=== PATIENT | female | born 1930 | race African-American/Black ===

== ENCOUNTER 2017-01-01 11:29 | Inpatient (IN) | payer MEDICARE, OTHER ==
--- NOTE | ~2017-01-01 | EKG ---
PATIENT: FOUZIA WILSON UNIT #: [id number] Ventricular Rate: 105 BPM Atrial Rate: 105 BPM P-R Interval: 176 ms QRS Duration: 70 ms Q-T Interval: 350 ms QTC Calculation(Bezet): 462 ms P [place]: 47 degrees Calculated R [place]: -19 degrees Calculated T [place]: 45 degrees Diagnosis Line: Sinus tachycardia Diagnosis Line: Minimal voltage criteria for LVH, may be normal Diagnosis Line: variant Diagnosis Line: Early repolarization Diagnosis Line: Borderline ECG Diagnosis Line: No previous ECGs available Diagnosis Line: Confirmed by LETTY SCHWARTZ MD ([id number]) on 01/01/2017 Diagnosis Line: 10:52:38 PM INTERPRETING MD: EFREN LARKIN
--- NOTE | ~2017-01-01 | TH ---
Unit #: [id number] #: [id number] Patient: FOUZIA WILSON [id number] [address] [address] [id number] I MR#: [id number] NAME: FOUZIA WILSON. : 1930 SEX: F STUDY DATE/TIME: 01/02/2017 UNIT: C3A PCU ROOM: 314 STUDY DESCRIPTION: Imaging study Attending Physician: Opal Parry M.D. Primary Care Physician: Alexis Sofia M.D. CARDIOLOGY REPORT EXAM Lexiscan-Cardiolite stress test, nuclear portion PROCEDURE Using [id number] Cardiolite, rest and stress SPECT images were obtained. Multiple SPECT images were obtained in various views including horizontal and vertical long axis and short axis views of the left ventricle. Images were obtained by gated SPECT method. Patient was administered 11.47 mCi of Cardiolite at rest. Patient was administered 30.7 mCi of Cardiolite after Lexiscan infusion was completed. On the stress images there is normal perfusion noted. The rest images showed normal perfusion. Comparing rest and stress images there is no stress-induced ischemia noted. The left ventricular ejection fraction is calculated to be 98%. There is no focal wall motion abnormality seen. The left ventricular size is very small. CONCLUSION 1. No stress-induced ischemia noted. 2. The left ventricular ejection fraction is calculated to be 98%. 3. There is no focal wall motion abnormality seen. 4. The left ventricular size is extremely small. 4. Normal Lexiscan-Cardiolite stress test. Clinical correlation is requested. Dictated by... Lo Neil TD: 01/02/2017 16:00 JOB #: [id number] Unit #: [id number] #: [id number] Patient: FOUZIA WILSON CARDIOLOGY REPORT Page 1 of 1 X Zahida Keane MD <ELECTRONICALLY SIGNED> 03/25/17 1422 CARDIOLOGY REPORT
--- NOTE | ~2017-01-01 | DS ---
Unit #: [id number] #: [id number] Patient: FOUZIA WILSON [id number] [address] [address] [id number] I MR#: [id number] NAME: FOUZIA WILSON. ROOM: 314 Age: 86 Sex: F Admission Date: 01/01/2017 : 1930 Discharge Date: Attending Physician: Opal Parry M.D. Primary Care Physician: Alexis Sofia M.D. DISCHARGE SUMMARY DISCHARGE DIAGNOSES 1. Acute pericarditis. 2. Exertional dyspnea, stress test negative. 3. Diabetes mellitus type 2, insulin dependent, uncontrolled. 4. Hyperlipidemia. 5. Osteoporosis. 6. Osteoarthritis. CONSULTATION Dr. Keane. PROCEDURE Patient had a stress test which was negative. DIAGNOSTIC STUDIES LABORATORY: Troponin negative. Creatinine 0.9. Carbon dioxide 21. Glucose 297. D-dimer 866. IMAGING: Chest x-ray: Negative. CT of the chest shows no PE, right hilar adenopathy present. The patient also has two nodular densities in the right pulmonary apex measuring 1 cm, needs outpatient CT with IV contrast. CARDIOVASCULAR: EKG read by cardiology shows normal sinus rhythm. Echocardiogram shows ejection fraction 60%. No pericardial effusion. Right ventricular systolic pressure is 42. ALLERGIES Nexium. DISCHARGE MEDICATIONS 1. Januvia 50 mg p.o. daily. 2. Pioglitazone 30 mg p.o. daily. 3. Lipitor 40 mg p.o. daily. 4. Levemir 10 units subcutaneous at bedtime. 5. Ranitidine 150 p.o. b.i.d. 6. Fosamax 70 p.o. weekly. 7. Aspirin 81 daily. 8. Ultram 50 mg p.o. b.i.d. p.r.n. pain. 9. Vitamin D 2000 p.o. daily. HOSPITALIZATION COURSE Unit #: [id number] #: [id number] Patient: FOUZIA WILSON An 86 year old admitted because of chest pain. Acute pericarditis: Patient is seen by cardiology. Currently, chest pain resolved. Echocardiogram did not show any effusion. Continue with p.r.n. NSAIDs if needed. Patient did receive Indomethacin and IV Solu-Medrol. I discussed with Dr. Keane. Because patient is asymptomatic currently, she thinks patient does not need any medications, especially prednisone. Exertional dyspnea: The patient had a stress test which was negative. Anemia: Iron deficiency, chronic. Diabetes mellitus type 2: Uncontrolled, continue with insulin. DISPOSITION Discharge home. FOLLOWUP 1. Follow with family physician in one week time. 2. Follow with Dr. Rocha on January 19, 2017. Dictated by... Lo Santamaria/jareth TD: 01/02/2017 16:30 JOB #: [id number] DISCHARGE SUMMARY Page 1 of 1 X Opal Parry MD X DISCHARGE SUMMARY
--- NOTE | ~2017-01-01 | CT16 ---
[facility] A Service of [facility] & [facility] RADIOLOGY TEXT RESULTS PATIENT: FOUZIA WILSON LOCATION: [facility] 314-01 : 32 UNIT #: [id number] AGE: [address]: Opal Parry MD SEX: F ORDER DR: [id number] [facility] [address] [place], [place] [address] [id number] I MR#: [id number] Acc #: [id number] NAME: FOUZIA WILSON. : 1930 SEX: F STUDY DATE/TIME: 01/01/2017 13:28 [facility] STUDY DESCRIPTION: CT Angio Chest for PE Attending Physician: Carlos Landrum M.D. Ordering Physician: Escobar [id number] Jimmy Marquez Primary Care Physician: Alexis Sofia M.D. MEDICAL IMAGING REPORT This report is preliminary unless electronic signature is present EXAM CT angiography of the chest with IV contrast, PE protocol COMPARISON CT abdomen and pelvis dated March 25, 2014 and May 06, 2008. INDICATIONS 86-year-old female with chest pain radiating into the upper back and nausea since yesterday. FINDINGS Axial CT imaging of the chest was performed during the pulmonary arterial phase after IV administration of 80 mL of Isovue-370. Coronal MIPs and sagittal reformats were constructed. This CT exam was performed with one or more of the following radiation dose reduction techniques: Automatic exposure control, adjustment of mA and/or kV according to patient size, and iterative reconstruction. There are bilateral hilar lymph nodes measuring up to 1.1 cm on the right and up to 0.6 cm on the left, short axis. Partly calcified lymph nodes in the subcarinal location. Precarinal lymph node measuring up to 9 mm, short axis. Small hiatal hernia. No acute fractures or suspicious osseous lesions. Airways are widely patent. Normal heart size without pericardial effusion. Normal caliber of the thoracic aorta and the main pulmonary artery. No evidence of pulmonary embolus. No pleural effusion. There is an enhancing dependent atelectasis in both lower lobes. No pneumothorax. Focal rounded opacity in the right pulmonary apex measures up to 1 cm, possibly representing an area of focal pleuroparenchymal scarring. Separate nodular opacity abutting the pleura in the right upper lobe measure up to 1.1 cm, also possibly pleuroparenchymal scarring or subsegmental atelectasis. Calcified granuloma in the right middle lobe. Enhancing atelectasis seen in the medial right middle lobe. [facility] A Service of [facility] RADIOLOGY TEXT RESULTS PATIENT: FOUZIA WILSON LOCATION: [facility]A 314-01 : 32 UNIT #: [id number] AGE: [address]: Opal Parry MD SEX: F ORDER DR: IMPRESSION 1. No evidence of pulmonary embolus or other acute abnormality in the chest or imaged upper abdomen. 2. No evidence of pneumonia or pleural effusion. 3. Mild right hilar adenopathy measuring up to 1.1 cm, short axis. Patient also has 2 nodular densities in the right pulmonary apex measuring up to approximately 1 cm abutting the pleura, possibly representing subsegmental atelectasis or pleuroparenchymal scarring. Followup chest CT in 3 months without IV contrast is recommended to document stability. 4. Small hiatal hernia. Dictated by... Bjorn Ryder M.D. THIS IS AN ELECTRONICALLY VERIFIED REPORT Bjorn Ryder M.D. at 01/05/2017 8:15 AM ENID/porter TD: 01/01/2017 16:28 JOB #: [id number] MEDICAL IMAGING REPORT Page 1 of 1 COPY
--- NOTE | ~2017-01-01 | CO ---
Unit #: [id number] #: [id number] Patient: FOUZIA WILSON [id number] [place] [id number] [facility]. [place], [place] [address] [id number] I MR#: [id number] NAME: FOUZIA WILSON. ROOM: 44443 Age: 86 Sex: F Admission Date: 01/01/2017 : 1930 Attending Physician: Carlos Landrum M.D. Primary Care Physician: Alexis Sofia M.D. CONSULTATION REPORT REASON FOR CONSULTATION Chest pain, possible pericarditis. HISTORY OF PRESENT ILLNESS An 86-year-old female with past medical history of diabetes, hypertension who comes to [facility] ER with concerning features of chest pain. Patient states that chest pain gets worse with deep inspiration, has been ongoing for the last 2 days. There is no exertional component to chest discomfort. There is mild shortness of breath, if any. There is no orthopnea, no PND, no pedal edema currently. No palpitations and no syncope. Patient's family does report that she had pedal edema for one day, which has resolved by now. She denies any flu-like illness. She denies any cough. she denies any sick contacts. She denies any prior cardiac workup. PAST MEDICAL HISTORY Diabetes and hyperlipidemia. PAST SURGICAL HISTORY Cholecystectomy, hysterectomy and x3. ALLERGIES Nexium gave her rash. SOCIAL HISTORY Denies smoking, alcohol or drug abuse. Uses cane for walking. REVIEW OF SYSTEMS All 14-point review of systems are negative. OUTPATIENT MEDICATIONS 1. She takes aspirin 81 mg p.o. daily. 2. Alendronate 70 mg tablet once weekly. 3. Vitamin D 2,000 unit capsules. 4. Januvia 50 mg oral tablet once daily. 5. Levemir 100 units per mL subcutaneous solution. She takes 18 units at bedtime. 6. Ranitidine 150 mg p.o. b.i.d. 7. Simvastatin 20 mg p.o. at bedtime daily. 8. Tramadol 50 mg p.o. as needed for pain. 9. Recently started on pioglitazone 30 mg p.o. daily. PHYSICAL EXAMINATION VITAL SIGNS: On examination the patient's blood pressure is 142/70, heart Unit #: [id number] #: [id number] Patient: FOUZIA WILSON P rate is 102, temperature is 98.1, respiratory rate is 18. CHEST: Clear. Normal vesicular breath sounds heard bilaterally. HEART: S1, S2 is heard. There is no murmur, rub or gallop heard. EXTREMITIES: There is no edema. NECK: No thyromegaly. No JVD. HEENT: PERRLA. GENERAL: Alert and awake. NEUROLOGIC: Speech normal. Motor and sensory intact. PSYCHIATRIC: Mood and affect normal. MUSCULOSKELETAL: No scoliosis. No deformities. SKIN: Intact. No ulcers. DIAGNOSTIC STUDIES LABS: Creatinine 0.9, BUN is 15, glucose is 216, sodium is 132, potassium is 3.6, chloride 99, bicarb 23, calcium 8.9, bili 0.6, AST 19, ALT 15, alkaline phosphatase 54. Hemoglobin is 11, platelets 180, white count is 15.8, neutrophil differential is 86%. CARDIOVASCULAR: ECG shows normal sinus rhythm with concern for pericarditis with (1) segment elevation and AVR and ST segment depression. IMAGING: CT scan of the chest is pending. ASSESSMENT AND PLAN 1. Chest pain. Patient does have risk factors of diabetes, age and hyperlipidemia, although the patient's chest pain presentation is atypical and sounds like more pleuritic in nature. Given sinus tachycardia, would consider getting a CT of the chest to rule out PE. I do not suspect this is ischemic in etiology and do not need any stress test at this present time. Would get a two-D echocardiogram to evaluate for LV function. Trend cardiac enzymes. 2. Hyperlipidemia. Continue statin. 3. Would consider stopping Actos. 4. Further workup, plan as inpatient. Dictated by... Lo Rose/wiley TD: 01/01/2017 19:41 JOB #: [id number] CONSULTATION REPORT Page 1 of 1 X NATALY WHITTINGTON MD CONSULTATION REPORT
--- NOTE | ~2017-01-01 | EKG ---
PATIENT: FOUZIA WILSON UNIT #: [id number] Ventricular Rate: 93 BPM Atrial Rate: 93 BPM P-R Interval: 174 ms QRS Duration: 78 ms Q-T Interval: 370 ms QTC Calculation(Bezet): 460 ms P [place]: 43 degrees Calculated R [place]: -29 degrees Calculated T [place]: 53 degrees Diagnosis Line: Normal sinus rhythm Diagnosis Line: Minimal voltage criteria for LVH, may be normal Diagnosis Line: variant Diagnosis Line: Nonspecific ST elevation Diagnosis Line: Abnormal ECG Diagnosis Line: When compared with ECG of 01-JAN-2017 10:53, Diagnosis Line: (unconfirmed) Diagnosis Line: No significant change was found Diagnosis Line: Confirmed by LETTY SCHWARTZ MD ([id number]) on 01/01/2017 Diagnosis Line: 10:55:46 PM INTERPRETING MD: EFREN LARKIN
--- NOTE | ~2017-01-01 | CR72 ---
[facility] A Service of [facility] & [facility] RADIOLOGY TEXT RESULTS PATIENT: FOUZIA WILSON LOCATION: [facility] 314-01 : 32 UNIT #: [id number] AGE: [address]: Opal Parry MD SEX: F ORDER DR: [id number] [facility] [address] [place], [place] [address] [id number] MR#: [id number] Acc #: [id number] NAME: FOUZIA WILSON. : 1930 SEX: F STUDY DATE/TIME: 01/01/2017 10:58 UNIT: CRISTIAN ROOM: STUDY DESCRIPTION: CR Chest Single View Portable Attending Physician: Escobar Marquez M.D. Ordering Physician: Ed Roberth Godfrey M.D. Primary Care Physician: Alexis Sofia M.D. MEDICAL IMAGING REPORT This report is preliminary unless electronic signature is present EXAM Single view of the chest dated 01/01/2017 COMPARISON Chest 2 views dated 08/24/2015. HISTORY Chest pain since last night. FINDINGS Single view of the chest was obtained. No acute cardiopulmonary disease. Minimal atelectatic changes adjacent to the diaphragm in the lung bases cannot be excluded. No significant pleural effusion, pneumothorax, or lung mass. Heart, mediastinum and bones do not demonstrate any significant abnormality. Dictated by... Yan Fleming M.D. THIS IS AN ELECTRONICALLY VERIFIED REPORT Yan Fleming M.D. at 01/02/2017 3:20 PM CPR/aa TD: 01/01/2017 13:39 JOB #: [id number] MEDICAL IMAGING REPORT Page 1 of 1 COPY
--- NOTE | ~2017-01-01 | ST ---
Unit #: [id number] #: [id number] Patient: FOUZIA WILSON [id number] [facility]. [place] [address] [facility]. [place], [place] [address] [id number] I MR#: [id number] NAME: FOUZIA WILSON : 1930 SEX: F STUDY DATE/TIME: 01/02/2017 UNIT: C3A PCU ROOM: 314 STUDY DESCRIPTION: Attending Physician: Opal Parry M.D. Primary Care Physician: Alexis Sofia M.D. CARDIOLOGY REPORT EXAM Lexiscan Cardiolite stress test. FINDINGS Baseline EKG: Normal sinus rhythm with ventricular rate 94 beats per minute, left atrial abnormality, Q waves in V1, low voltage in V2, left ventricular hypertrophy, early repolarization, slow R-wave progression. PROCEDURE Lexiscan is a 4-minute test with Lexiscan being injected within the first minute followed by Cardiolite. EKG during the test remained equivocal to baseline. Continued to show low voltage, especially V2. The patient had no complaints of chest pain, palpitations, or dizziness. Had a rare premature ventricular complex. Maximum heart rate response was 122 beats per minute with a maximum blood pressure response of 155/79 mmHg. The patient had no complaints of chest pain, palpitations, or dizziness. Had increased shortness of breath and fatigueness which resolved in recovery phase. Cardiolite was injected after Lexiscan within the first minute of the test. Radionuclide tests pending. Please correlate with nuclear images. Dictated by... Lauren Alberto A.P.R.N. for Lo Neil/jareth TD: 01/02/2017 12:01 JOB #: [id number] CARDIOLOGY REPORT Page 1 of 1 X Lauren Alberto APRN CARDIOLOGY REPORT
--- NOTE | ~2017-01-01 | HP ---
Unit #: [id number] #: [id number] Patient: FOUZIA WILSON [id number] [address] [address] [id number] I MR#: [id number] NAME: FOUZIA WILSON. ROOM: 314 Age: 86 Sex: F Admission Date: 01/01/2017 : 1930 Attending Physician: Carlos Landrum M.D. Primary Care Physician: Alexis Sofia M.D. HISTORY AND PHYSICAL REASON FOR ADMISSION Acute pericarditis/chest pain. HISTORY OF PRESENT ILLNESS Patient is an 86-year-old female who over the past three to four days has been having progressive chest pain with worsening on deep inspiration she characterized as moderate intensity, approximately 6 to 8 out of 10. She presented to the ER for further evaluation. Through ER course, patient underwent an EKG and chest x-ray, as well as CT, PE protocol, which showed some pulmonary nodules present. The findings were consistent with pericarditis. The case was reviewed with Dr. Rocha of cardiology services, who recommended (1) and asked the [facility] service to admit patient for further evaluation. PAST MEDICAL HISTORY 1. Diabetes with insulin dependence. 2. Gastroesophageal reflux disease. 3. Hyperlipidemia. 4. Chronic osteoarthritis. 5. Osteoporosis. PAST SURGICAL HISTORY 1. section. 2. Hysterectomy. 3. Cholecystectomy. HOME MEDICATIONS 1. Amaryl. 2. Zantac. 3. Zocor. 4. Aspirin. 5. Calcium. 6. Fosamax. 7. Glucophage. ALLERGIES Nexium. FAMILY HISTORY Reviewed and noncontributory or non-pertinent. SOCIAL HISTORY Unit #: [id number] #: [id number] Patient: FOUZIA WILSON No alcohol use, no tobacco use, and no illicit drug use. REVIEW OF SYSTEMS Please see History of Present Illness. Twelve points otherwise negative except for those positive and noted in the HPI. PHYSICAL EXAMINATION VITAL SIGNS: Temperature 98.1, pulse 108, respiratory rate 15, and blood pressure 164/79. GENERAL APPEARANCE: Patient is an 86-year-old female lying comfortably in no acute distress. HEAD: Atraumatic and normocephalic. EARS: Tympanic membranes do not reveal any erythema or injection. NECK: Supple. CARDIOVASCULAR: S1 and S2. I do not hear a pericardial rub. RESPIRATORY: No respiratory distress. CHEST: Clear to auscultation bilaterally. No evidence of any wheezes, rales, or rhonchi. GASTROINTESTINAL/ABDOMEN: Nontender and nondistended. LOWER EXTREMITIES: No evidence of any lower extremity edema or calf tenderness. NEUROLOGIC: Alert and oriented x3. No evidence of any focal nerve deficits. DIAGNOSTIC STUDIES INITIAL LABORATORY: White count of 15.8. Sodium 132 and glucose 216. IMAGING: Chest x-ray no acute process. CT chest, official report not available to me, however, per ER physician shows findings consistent with possible underlying pericarditis. CARDIOLOGY: Repeat EKG shows diffuse changes consistent with pericarditis with diffuse [address] elevation noted. LAD also noted. INITIAL ADMISSION DIAGNOSES 1. Chest pain. 2. Acute pericarditis. 3. Abnormal EKG. 4. Progressive dyspnea. 5. History of diabetes with insulin dependence. 6. Hyperlipidemia. 7. Osteoporosis. 8. Osteoarthritis. PLAN Admission to telemetry floor. Low-dose IV steroids to be initiated in lieu of patient's prior history of diabetes. I will also initiate Indocin 50 mg p.o. q.8. A Cardiology consultation will be obtained. A 2D echo ordered. Further hospital course to follow. The plans have been reviewed with patient in detail. She is Full Code. Dictated by Lo Hitchcock/alec TD: 01/01/2017 20:40 Unit #: [id number] #: [id number] Patient: FOUZIA WILSON JOB #: [id number] HISTORY AND PHYSICAL Page 1 of 1 X Carlos Landrum MD HISTORY AND PHYSICAL
[2017-01-01 11:24] LABS: POC - CKMB <1.0 ng/mL (0.0-7.9); POC - TROPONIN <0.05 ng/mL (<=0.05)
[2017-01-01 11:27] LABS: BASOPHIL# 0.1 X10e3 (0-0.3); BASOPHIL% 0.4 % (0-2.5); DIFF IND YES; HEMATOCRIT 34.3 % (35.0-45.0); LYMPHOCYTE# 1.4 X10e3 (1.0-3.5); LYMPHOCYTE% 8.5 % (17.0-45.0); MEAN CELL VOLUME 81.6 FL (83-96); MEAN CORPUSCULAR HEMOGLOBIN 26.1 PG (28-34); MEAN CORPUSCULAR HGB CONC 32.1 g/dL (30-36); MEAN PLATELET VOLUME 9.9 FL (6.5-11.5); MONOCYTE# 0.8 X10e3 (0-1.0); MONOCYTE% 5.1 % (3.0-12.0); NEUTROPHIL# 13.6 X10e3 (1.5-7.1); PLATELET COUNT 180 X10e3 (140-420); RED CELL DISTRIBUTION WIDTH 14.3 % (11.0-15.5); WHITE BLOOD COUNT 15.8 X10e3 (4.0-10.5)
[~2017-01-01 11:29] MED LIST: AMARYL PO; ASPIRIN PO; CALCIUM 500 + D1 TAB PO; FOSAMAX PO; GLUCOPHAGE XR500 MG PO; ZANTAC PO; ZOCOR PO
[2017-01-01 11:38] LABS: PARTIAL THROMBOPLASTIN TIME 23.2 SECONDS (23.5-31.3); PROTHROMBIN TIME (PATIENT) 10.2 SECONDS (9.6-11.5)
[2017-01-01 11:46] LABS: ALBUMIN SERUM 4.3 g/dL (3.5-5.0); BILIRUBIN, DIRECT 0.1 mg/dL (0.0-0.2); BILIRUBIN,INDIRECT 0.5 mg/dL (0.0-0.9); BILIRUBIN,TOTAL 0.6 mg/dL (0.2-2.0); BUN/CREATININE RATIO 16.66; CALCIUM SERUM 8.9 mg/dL (8.4-10.2); CREATININE SERUM 0.9 mg/dL (0.6-1.4); GLOM FILT RATE Estimated 68.1 mL/min (>60); POTASSIUM 3.6 mmol/L (3.5-5.1); PROTEIN TOTAL SERUM 7.8 g/dL (6.0-8.3)
[2017-01-01 11:52] LABS: ANISOCYTOSIS SL; PLATELET ESTIMATE NORMAL (NORMAL); RBC NORMAL YES
[2017-01-01] MEDS ORDERED: ASPIRIN EC81 M1 PO (12:00)
[2017-01-01] MEDS ORDERED: FOSAMAX70 MG PO (12:02)
[2017-01-01] MEDS ORDERED: JANUVIA50 MG PO (12:03)
[2017-01-01] MEDS ORDERED: VITAMIN D2000 UNIT PO (12:03)
[2017-01-01] MEDS ORDERED: LEVEMIR100 UNITS/ SUBQ (12:04)
[2017-01-01] MEDS ORDERED: PIOGLITAZONE HC30 MG PO (12:04)
[2017-01-01] MEDS ORDERED: RANITIDINE HCL150 M1 PO (12:05)
[2017-01-01] MEDS ORDERED: TRAMADOL HCL50 M1 PO (12:06)
[2017-01-01] MEDS ORDERED: SIMVASTATIN20 MG PO (12:06)
[2017-01-01 14:37] LABS: POC - CKMB <1.0 ng/mL (0.0-7.9); POC - TROPONIN <0.05 ng/mL (<=0.05)
[2017-01-02 05:15] LABS: BASOPHIL% 0.3 % (0-2.5); HEMATOCRIT 32.1 % (35.0-45.0); HEMOGLOBIN 10.4 gm/dL (12.0-16.0); LYMPHOCYTE# 0.9 X10e3 (1.0-3.5); LYMPHOCYTE% 7.7 % (17.0-45.0); MEAN CELL VOLUME 81.7 FL (83-96); MEAN CORPUSCULAR HEMOGLOBIN 26.4 PG (28-34); MEAN CORPUSCULAR HGB CONC 32.4 g/dL (30-36); MEAN PLATELET VOLUME 9.6 FL (6.5-11.5); MONOCYTE# 0.1 X10e3 (0-1.0); NEUTROPHIL# 10.9 X10e3 (1.5-7.1); PLATELET COUNT 256 X10e3 (140-420); RED BLOOD COUNT 3.93 X10e (3.90-5.30); RED CELL DISTRIBUTION WIDTH 14.1 % (11.0-15.5)
[2017-01-02 05:31] LABS: DIFF IND NO
[2017-01-02 07:05] LABS: BUN/CREATININE RATIO 24.44; CALCIUM SERUM 8.4 mg/dL (8.4-10.2); CREATININE SERUM 0.9 mg/dL (0.6-1.4); GLOM FILT RATE Estimated 68.1 mL/min (>60); POTASSIUM 4.4 mmol/L (3.5-5.1)
[2017-01-02] MEDS ORDERED: LIPITOR40 MG PO (16:21)
== END 2017-01-02 17:55 | disposition home or self-care (01) | DRG 316 ==
LOC: CED 11:29 → CEDOF 17:10 → C3A PCU 20:21
PROVIDERS: Emergency Medicine; Family Medicine
PROC: B32TYZZ Computerized Tomography (CT Scan) of Left Pulmonary Artery using Other Contrast (ICD-10-PCS; principal; 2017-01-01)
PROC: B32SYZZ Computerized Tomography (CT Scan) of Right Pulmonary Artery using Other Contrast (ICD-10-PCS; 2017-01-01)
PROC: B24BYZZ Ultrasonography of Heart with Aorta using Other Contrast (ICD-10-PCS; 2017-01-02)
DX: I30.9 Acute pericarditis, unspecified (principal); R06.09 Other forms of dyspnea; E11.65 Type 2 diabetes mellitus with hyperglycemia; Z79.4 Long term (current) use of insulin; K21.9 Gastro-esophageal reflux disease without esophagitis; E78.5 Hyperlipidemia, unspecified; M19.90 Unspecified osteoarthritis, unspecified site; M81.0 Age-related osteoporosis without current pathological fracture; Z90.710 Acquired absence of both cervix and uterus; Z90.49 Acquired absence of other specified parts of digestive tract; Z79.82 Long term (current) use of aspirin; D50.9 Iron deficiency anemia, unspecified
CPT/HCPCS: 71010; 71275; 78452; 80048; 80061; 80076; 82553; 82947; 84443; 84484; 85025; 85379; 85610; 85730; 93005; 93017; 93306; 94760; 99291; A9500; C9113; J1815; J2785; J2920; Q9967